=== PATIENT | male | born 1990 | race Two or more races ===

== ENCOUNTER 2017-10-11 17:37 | Emergency (ER) | payer MEDICAID ==
--- NOTE | 2017-10-11 20:46 | EDM.PDOC ---
ED HPI GENERAL MEDICAL PROBLEM - General Chief Complaint: Laceration Stated Complaint: CUT ON HIS CHIN Time Seen by Provider: 10/11/17 20:00 Source of Information: Reports: Patient History Limitations: Reports: No Limitations - History of Present Illness INITIAL COMMENTS - FREE TEXT/NARRATIVE: c/o chin lac fell off a chair, hit chin on way down, no other injury works as cook at [employer], from [facility], moved here with girlfriend over 1y ago last TD 4y ago Chin Pain Score (Numeric/FACES): 4 - Related Data Allergies Allergy/AdvReac Type Severity Reaction Status Date / Time No Known Allergies Allergy Verified 10/11/17 18:46 Home Meds: Home Meds NK [No Known Home Meds] 10/11/17 [History] Past Medical History Gastrointestinal History: Reports: GERD - Infectious Disease History Infectious Disease History: Reports: Chicken Pox - Past Surgical History HEENT Surgical History: Reports: Oral Surgery Social & Family History - Family History Family Medical History: Noncontributory - Tobacco Use Smoking Status *Q: Current Every Day Smoker Years of Tobacco use: 10 Packs/Tins Daily: 0.3 - Caffeine Use Caffeine Use: Reports: Coffee, Tea - Alcohol Use Days Per Week of Alcohol Use: 1 Number of Drinks Per Day: 4 Total Drinks Per Week: 4 - Recreational Drug Use Recreational Drug Use: No ED ROS GENERAL - Review of Systems Review Of Systems: See Below Constitutional: Reports: No Symptoms HEENT: Reports: No Symptoms Respiratory: Reports: No Symptoms Cardiovascular: Reports: No Symptoms Endocrine: Reports: No Symptoms GI/Abdominal: Reports: No Symptoms : Reports: No Symptoms Musculoskeletal: Reports: No Symptoms Skin: Reports: Wound Neurological: Reports: No Symptoms Psychiatric: Reports: No Symptoms Hematologic/Lymphatic: Reports: No Symptoms Immunologic: Reports: No Symptoms ED EXAM, SKIN/RASH Exam: See Below Exam Limited By: No Limitations General Appearance: Alert, WD/WN, No Apparent Distress Head: Other (chin on anterior surface below lower lip is a curvilinear 1.5 cm lac, 2% lido with epi with #25 needle local, cleaned x 8 with gauze and SureCleans, closed 4-0 Ethilon x 3, good apposition of margins, no f.b., has reyna, care taken to keep all hairs out, tolerated quite well despite his fear of needles) Course - Vital Signs Last Recorded V/S: Last Vital Signs Temp 36.7 C 10/11/17 18:43 Pulse 89 10/11/17 18:43 Resp 18 10/11/17 18:43 BP 148/100 H 10/11/17 18:43 Pulse Ox 98 10/11/17 18:43 Departure - Departure Time of Disposition: 20:45 Disposition: Home, Self-Care 01 Condition: Good Clinical Impression: Laceration of chin - Discharge Information Instructions: Facial Laceration, Laceration Care, Adult, [id number] Referrals: Shankar Julien MD [Primary Care Provider] - Additional Instructions: Keep clean and dry. See a physician the same day for any increase in redness, swelling, pain, warmth , drainage or fever. Otherwise, see your physician in 1 week to remove sutures.
== END 2017-10-11 20:55 | disposition home or self-care (01) ==
LOC: FB.ED 17:37
DX: S01.81XA Laceration without foreign body of other part of head, initial encounter (principal); W07.XXXA Fall from chair, initial encounter; F17.200 Nicotine dependence, unspecified, uncomplicated
CPT/HCPCS: 12001; 12011; 99282